=== PATIENT | female | born 1970 | race Caucasian/White ===

== ENCOUNTER 2020-10-24 05:05 | Emergency (ER) | payer MEDICAID ==
[~2020-10-24] VITALS: Ht 162.6 cm; Wt 95.3 kg
[~2020-10-24 05:05] MED LIST: LISINOPRIL-HCT1 EAC2 PO; NORCO; NORCO 10/3251 EA ORAL; NORCO 5-325 TA1 EACH ORAL; PERCOCET 5-3251 EACH ORAL
[2020-10-24] MEDS ORDERED: LYRICA75 M1 ORAL (05:21)
[2020-10-24] MEDS ORDERED: HYDROMORPHONE ER8 MG ORAL (05:21)
[2020-10-24] MEDS ORDERED: LABETALOL HCL100 MG ORAL (05:21)
[2020-10-24] MEDS ORDERED: AMLODIPINE BESY10 MG ORAL (05:21)
[2020-10-24] MEDS ORDERED: LOSARTAN POTASS25 MG ORAL (05:21)
[2020-10-24] MEDS ORDERED: ATORVASTATIN CA40 MG ORAL (05:21)
[2020-10-24] MEDS ORDERED: PROTONIX40 MG ORAL (05:21)
[2020-10-24] MEDS ORDERED: HYDROCHLOROTH12.5 MG ORAL (05:21)
[2020-10-24] MEDS ORDERED: HUMALOG100 UNIT/4 SUBQ (05:21)
[2020-10-24 05:30] VITALS: BP 173/105
[2020-10-24] MEDS ORDERED: LEVOFLOXACIN750 MG ORAL (05:42)
[2020-10-24] MEDS ORDERED: DIFICID200 MG PO (05:42)
--- NOTE | 2020-10-24 05:43 | Emergency Room Report ---
History of Present Illness General Chief Complaint: Diarrhea Source: Patient, Medical Record Present Illness HPI This is a 50-year-old female who has a history of recurrent C. difficile. She just finished antibiotics for Levaquin and Dificid around . She been admitted for this before. She presents with chief complaint of abdominal pain and diarrhea. She was doing well until today. Now started having diarrhea again. Has pain to the left lower quadrant area. Cramping in nature. No fever chills but no nausea no vomiting. Diarrhea is loose and greenish in nature. Similar symptom in the past. She has not taken her blood pressure medication th is morning. Allergies: Coded Allergies: ACETAMINOPHEN (Verified Allergy, 07/20/13) DIHYDROERGOTAMINE (Verified Allergy, 07/20/13) KETOROLAC TROMETHAMINE (Verified Allergy, 07/20/13) METOCLOPRAMIDE HCL (Verified Allergy, 07/20/13) MORPHINE (Verified Allergy, 07/20/13) NAPROXEN SODIUM (Verified Allergy, 07/20/13) PROPOXYPHENE NAPSYLATE (Verified Allergy, 07/20/13) Uncoded Allergies: IV CONTRAST (Allergy, Unknown, 07/20/13) COVID-19 Screening Contact w/high risk pt: No Experienced COVID-19 symptoms?: No COVID-19 Testing performed CHECKMAN: Yes - 10/20/20 COVID-19 Screening: Negative COVID-19 COVID-19 Testing Source: roderick sofia Patient History Past Medical History: see triage record, old chart reviewed Past Surgical History: other Pertinent Family History: none Social History: Denies: smoking Last Menstrual Period: n/a Now: No Immunizations: other Reviewed Nursing Documentation: PMH: Agreed; PSxH: Agreed Nursing Documentation-PMH Past Medical History: No History, Except For Hx Hypertension: Yes Hx Asthma: Yes - copd Hx Diabetes: Yes - type 2 Hx Neurological Problems: Yes - MIGRANES Review of Systems Eye: Denies: eye pain, blurred vision ENT: Denies: ear pain, nose congestion, throat swelling Respiratory: Denies: cough, shortness of breath Cardiovascular: Denies: chest pain, palpitations Gastrointestinal: Reports: abdominal pain, diarrhea; Denies: nausea, vomiting Musculoskeletal: Denies: back pain, joint pain Skin: Denies: rash Neurological: Denies: headache, numbness Endocrine: Denies: increased thirst, increased urine Hematologic/Lymphatic: Denies: easy bruising All Other Systems: negative except mentioned in HPI Physical Exam Vital Signs Date Time Temp Pulse Resp B/P (MAP) Pulse Ox O2 Delivery O2 Flow Rate FiO2 10/24/20 05:15 97.2 86 15 173/105 (127) 97 Room Air Vitals with high blood pressure Sp02 EP Interpretation: reviewed, normal General Appearance: well appearing, no apparent distress, alert Head: normocephalic, atraumatic Eyes: bilateral eye PERRL, bilateral eye EOMI ENT: hearing grossly normal, normal pharynx Neck: full range of motion, supple, no meningismus Respiratory: chest non-tender, lungs clear, normal breath sounds Cardiovascular #1: regular rate, rhythm, no murmur Gastrointestinal: normal bowel sounds, no mass, no organomegaly, no bruit, non- distended, tenderness - Left lower quadrant Musculoskeletal: back normal, normal range of motion, gait/station normal Psychiatric: mood/affect normal Medical Decision Making Diagnostic Impression: Primary Impression: Diarrhea Qualified Codes: R19.7 - Diarrhea, unspecified Additional Impression: Hypertension Qualified Codes: I10 - Essential (primary) hypertension ER Course Presents with recurrent diarrhea. Presumed to be C. difficile. Her to antibiotics for what grew out in the culture. She tried vancomycin and Flagyl and it was not helpful. She was told that her next that may be a fecal transplant. She is extremely hard stick with multiple PICC lines and central li mercedes in the past. Since there is no fever and this pain and diarrhea consistent with her previous C. difficile, will treat with oral medication. She does not want IV for now. Last Vital Signs Date Time Temp Pulse Resp B/P (MAP) Pulse Ox O2 Delivery O2 Flow Rate FiO2 10/24/20 05:15 97.2 86 15 173/105 (127) 97 Room Air Status: improved Disposition: HOME, SELF-CARE Condition: Stable Scripts Fidaxomicin (DIFICID) 200 Mg Tablet 200 MG PO BID, #20 TAB Prov: John Irving MD 10/24/20 Levofloxacin* (LEVOFLOXACIN*) 750 Mg Tablet 750 MG ORAL DAILY, #10 TAB Prov: John Irving MD 10/24/20 Referrals: NON PHYSICIAN (PCP) Additional Instructions: Take your blood pressure medication when you get home. Follow-up with your doctor in 2 to 3 days. Return if symptoms worsen. John Irving MD Oct 24, 2020 05:43
[2020-10-24] MEDS ORDERED: Levofloxacin 750mg tab ORAL ONE (05:45)
[2020-10-24] MEDS ORDERED: HYDROmorphone 4mg tab ORAL ONE (05:45)
[2020-10-24 05:50] VITALS: BP 173/105
== END 2020-10-24 05:50 | disposition home or self-care (01) ==
LOC: EMR 05:28
DX: R19.7 Diarrhea, unspecified (principal); I10 Essential (primary) hypertension; E11.9 Type 2 diabetes mellitus without complications; Z88.6 Allergy status to analgesic agent; Z88.5 Allergy status to narcotic agent; Z88.8 Allergy status to other drugs, medicaments and biological substances; Z79.4 Long term (current) use of insulin; Z79.899 Other long term (current) drug therapy
CPT/HCPCS: 99282

== ENCOUNTER 2020-11-23 13:05 | Emergency (ER) | payer MEDICAID ==
[~2020-11-23] VITALS: Ht 162.6 cm; Wt 93.0 kg
[~2020-11-23 13:05] MED LIST changes: +AMLODIPINE BESY10 MG ORAL; +ATORVASTATIN CA40 MG ORAL; +DIFICID200 MG PO; +HUMALOG100 UNIT/4 SUBQ; +HYDROCHLOROTH12.5 MG ORAL; +HYDROMORPHONE ER8 MG ORAL; +LABETALOL HCL100 MG ORAL; +LEVOFLOXACIN750 MG ORAL; +LOSARTAN POTASS25 MG ORAL; +LYRICA75 M1 ORAL; +PROTONIX40 MG ORAL
[2020-11-23 13:18] VITALS: BP 151/98
--- NOTE | 2020-11-23 13:37 | NUR ---
ED Nurse Note: pt. aaox4 and ambulatory.pt. walked in to er from home. per pt. she tested negative on 11/20/20 but is here for cough and nosebleed x 3 days. no active bleeding reported at this time
--- NOTE | 2020-11-23 13:37 | NUR ---
ED Nurse Note: r and d lab technician at the bed side
--- NOTE | 2020-11-23 14:02 | Emergency Room Report ---
History of Present Illness General Chief Complaint: Flu Like Symptoms Source: Patient Present Illness HPI 50-year-old female with history of CHF, chronic pain currently taking Flagyl as well as hydromorphone here complaining of few days of congestion and cough. Patient reports that she had a Covid test done 2 days ago and tested negative. Chest x-ray appears to be within normal limits. Denies any shortness of breath. Vital signs are within normal limits. Has not taken medication for symptom relief. Upon my entrance to the room patient asked if I could refill her hydromorphone. When I explained to patient that patient needs to asked pain management for that as she has chronic pain and we are unable to refill medication for a long time for chronic pain specialist for hydromorphone and emergency room setting patient agreed to be treated with Phenergan, azithromycin, albuterol for her symptoms. However patient eloped before being discharged. 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 COVID-19 Screening: Negative COVID-19 COVID-19 Testing Source: nasopharyngeal (11/20/20) Patient History Past Medical History: see triage record Past Surgical History: none Pertinent Family History: none Now: No Immunizations: UTD Reviewed Nursing Documentation: PMH: Agreed; PSxH: Agreed Nursing Documentation-PMH Hx Hypertension: Yes Hx Asthma: Yes - copd Hx Diabetes: Yes - type 2 Hx Neurological Problems: Yes - MIGRANES Review of Systems All Other Systems: negative except mentioned in HPI Physical Exam Vital Signs Date Time Temp Pulse Resp B/P (MAP) Pulse Ox O2 Delivery O2 Flow Rate FiO2 11/23/20 13:18 98.2 100 22 151/98 97 Room Air Sp02 EP Interpretation: reviewed, normal General Appearance: no apparent distress, alert, GCS 15, non-toxic Head: normocephalic, atraumatic Eyes: bilateral eye normal inspection, bilateral eye PERRL ENT: hearing grossly normal, no angioedema, normal voice Neck: full range of motion, supple/symm/no masses Respiratory: no respiratory distress, no retraction, no accessory muscle use Cardiovascular #1: regular rate, rhythm Gastrointestinal: non-distended Musculoskeletal: back normal, gait/station normal Neurologic: alert, motor strength/tone normal, oriented x3, sensory intact, r esponsive, speech normal Psychiatric: judgement/insight normal, memory normal, mood/affect normal, no suicidal/homicidal ideation Skin: no rash Lymphatic: normal inspection Medical Decision Making PA Attestation All my diagnosis and treatment plans were reviewed ad discussed with my supervising physician Dr. Elaine Diagnostic Impression: Primary Impression: URI (upper respiratory infection) Additional Impression: Eloped from emergency department ER Course 50-year-old female with history of CHF, chronic pain currently taking Flagyl as well as hydromorphone here complaining of few days of congestion and cough. Patient reports that she had a Covid test done 2 days ago and tested negative. Chest x-ray appears to be within normal limits. Denies any shortness of breath. Vital signs are within normal limits. Has not taken medication for symptom relief. Upon my entrance to the room patient asked if I could refill her hydromorphone. When I explained to patient that patient needs to asked pain management for that as she has chronic pain and we are unable to refill medic ation for a long time for chronic pain specialist for hydromorphone and emergency room setting patient agreed to be treated with Phenergan, azithromycin, albuterol for her symptoms. However patient eloped before being discharged. Ddx considered but are not limited to: strep pharyngitis, URI, tonsillitis, peritonsillar abscess, influneza Vital signs: are WNL, pt. is afebrile H&PE are most consistent with: URI, patient eloped, drug-seeking behavior ORDERS: Azithromycin, Phenergan, albuterol ED INTERVENTIONS: None required at this time. Patient eloped Chest X-Ray Diagnostic Results Chest X-Ray Diagnostic Results : Chest X-Ray Ordered: Yes # of Views/Limited/Complete: 1 View Indication: Other - cough EP Interpretation: Yes ELENI Xray: Interpretation reviewed, by supervising MD, and agrees with findings. Interpretation: no consolidation, no effusion, no pneumothorax Impression: No acute disease Electronically Signed by: Salma Gastelum PA-C Last Vital Signs Date Time Temp Pulse Resp B/P (MAP) Pulse Ox O2 Delivery O2 Flow Rate FiO2 11/23/20 13:18 98.2 100 22 151/98 (115) 97 Room Air Disposition: HOME, SELF-CARE Condition: Stable Scripts Albuterol Sulfate (VENTOLIN HFA) 18 Gm Hfa.aer.ad 2 PUFFS INH EVERY 6 HOURS, #18 GM 0 Refills Prov: Salma Odom 11/23/20 Promethazine Hcl (PROMETHAZINE HCL*) 6.25 Mg/5 Ml Syrup 5 ML ORAL Q8H, #120 ML 0 Refills Prov: Salma Odom 11/23/20 Azithromycin* (ZITHROMAX*) 250 Mg Tablet 250 MG ORAL DAILY, #6 TAB 0 Refills Take two tables once daily for 1 day, then one tablet once daily for 4 days. Prov: Salma Odom 11/23/20 Referrals: NON PHYSICIAN (PCP) Patient Instructions: Upper Respiratory Infection, Adult Additional Instructions: Take medication as directed, follow primary care provider, if worsening symptoms return to the emergency room Salma Odom Nov 23, 2020 14:02
[2020-11-23] MEDS ORDERED: PROMETHAZI6.25 MG/1 ORAL (14:03)
[2020-11-23] MEDS ORDERED: VENTOLIN HFA18 GM INH (14:03)
[2020-11-23] MEDS ORDERED: ZITHROMAX250 MG ORAL (14:03)
[2020-11-23 14:10] VITALS: BP 149/78
--- NOTE | 2020-11-23 14:10 | NUR ---
ED Nurse Note: Pt cleared by ERPA for discharge. DC instructions/prescription was given and explained to pt and verbalized understanding of teachings. All medical deviecs such as ID band removed. Pt is AAO x4, ambulatory and left with all personal belongings.
--- NOTE | 2020-11-23 14:17 | Diagnostic Imaging Report ---
Indication: Shortness of breath Technique: One view of the chest Comparison: none Findings: Lungs and pleural spaces are clear. The heart size is normal. There is mild thoracic scoliosis. Impression: No acute process
== END 2020-11-23 14:10 | disposition home or self-care (01) ==
LOC: EMR 13:39
DX: J06.9 Acute upper respiratory infection, unspecified (principal); I11.0 Hypertensive heart disease with heart failure; I50.9 Heart failure, unspecified; J44.9 Chronic obstructive pulmonary disease, unspecified; E11.9 Type 2 diabetes mellitus without complications; G89.29 Other chronic pain; Z88.6 Allergy status to analgesic agent; Z88.8 Allergy status to other drugs, medicaments and biological substances
CPT/HCPCS: 71045; Z7502; 99283

== ENCOUNTER 2020-12-18 22:49 | Emergency (ER) | payer MEDICAID ==
[~2020-12-18] VITALS: Ht 162.6 cm; Wt 93.0 kg
[~2020-12-18 22:49] MED LIST changes: +PROMETHAZI6.25 MG/1 ORAL; +VENTOLIN HFA18 GM INH; +ZITHROMAX250 MG ORAL
--- NOTE | 2020-12-18 23:05 | NUR ---
ED Nurse Note: pt comes into ED c/o left lower abdominal pain that radiates into her groin x2 days. pt ambulates independently. c/o of 05/29 pain. a&Ox3, resting comfrotably on stretcher, vs wnl. will continue to monitor. urine sent to lab.
[2020-12-18] MEDS ORDERED: HYDROmorphone 4mg tab ORAL ONE (23:30)
[2020-12-18] MEDS ORDERED: HYDROmorphone 1mg/ml Carpuject IM ONE (23:30)
--- NOTE | 2020-12-18 23:34 | Emergency Room Report ---
History of Present Illness General Chief Complaint: Pelvic Pain Source: Patient Present Illness HPI This is a 50-year-old female with recurrent C. difficile infection. She also had a recent bladder surgery in June. She has been through several rounds of Flagyl, vancomycin and a couple of rounds of Dificid. Because of her diarrhea, she felt some pelvic pain and pulling sensation. She said that when she s trained she felt a bulging sensation. Not as bad as before. Denies any fever chills but no nausea vomiting. Diarrhea is loose and mucousy. Nothing made it better. Nothing made it worse. She is awaiting a fecal transplant at [facility]. 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 COVID-19 Screening: Positive COVID-19 COVID-19 Testing Source: Manish Patient History Past Medical History: see triage record, old chart reviewed Past Surgical History: other Pertinent Family History: none Social History: Denies: smoking Now: No Immunizations: other Reviewed Nursing Documentation: PMH: Agreed; PSxH: Agreed Nursing Documentation-PMH Hx Hypertension: Yes Hx Asthma: Yes - copd Hx Diabetes: Yes - type 2 Hx Neurological Problems: Yes - MIGRANES Review of Systems Eye: Denies: eye pain, blurred vision ENT: Denies: ear pain, nose congestion, throat swelling Respiratory: Denies: cough, shortness of breath Cardiovascular: Denies: chest pain, palpitations Gastrointestinal: Denies: abdominal pain, diarrhea, nausea, vomiting Genitourinary: Reports: pain Musculoskeletal: Denies: back pain, joint pain Skin: Denies: rash Neurological: Denies: headache, numbness Endocrine: Denies: increased thirst, increased urine Hematologic/Lymphatic: Denies: easy bruising All Other Systems: negative except mentioned in HPI Physical Exam Vital Signs Date Time Temp Pulse Resp B/P (MAP) Pulse Ox O2 Delivery O2 Flow Rate FiO2 12/18/20 22:53 99.1 101 20 154/104 (121) 96 Room Air Vitals with high blood pressure Sp02 EP Interpretation: reviewed, normal General Appearance: well appearing, no apparent distress, alert Head: normocephalic, atraumatic Eyes: bilateral eye PERRL, bilateral eye EOMI ENT: hearing grossly normal, normal pharynx Neck: full range of motion, supple, no meningismus Respiratory: chest non-tender, lungs clear, normal breath sounds Cardiovascular #1: regular rate, rhythm, no murmur Gastrointestinal: normal bowel sounds, non tender, no mass, no organomegaly, no bruit, non-distended Genitourinary: other - Pelvic exam 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 There is no evidence of bladder prolapse on exam. No cervical motion tenderness. Musculoskeletal: back normal, normal range of motion, gait/station normal Psychiatric: mood/affect normal Medical Decision Making Diagnostic Impression: Primary Impression: Pelvic pain ER Course Patient presents with pelvic pain. No evidence of prolapse or UTI. Will discharge home. Last Vital Signs Date Time Temp Pulse Resp B/P (MAP) Pulse Ox O2 Delivery O2 Flow Rate FiO2 12/18/20 22:53 99.1 101 20 154/104 (121) 96 Room Air Status: improved Disposition: HOME, SELF-CARE Condition: Stable Referrals: NON PHYSICIAN (PCP) Patient Instructions: Pelvic Pain, Female Additional Instructions: Follow-up with your doctor in 7 days. Return if symptoms worsen. John Irving MD Dec 18, 2020 23:34
[2020-12-18 23:43] VITALS: BP 156/108
[2020-12-18 23:44] LABS: APPEARANCE,URINE SLIGHTLY CLOUDY; BILIRUBIN, URINE NEGATIVE (NEGATIVE); COLOR,URINE PALE YELLOW; GLUCOSE, URINE (UA) 3+ (NEGATIVE); KETONES,URINE NEGATIVE (NEGATIVE); LEUKOCYTE ESTERASE ,URINE NEGATIVE (NEGATIVE); NITRITE,URINE NEGATIVE (NEGATIVE); PH,URINE 5 (4.5-8.0); PROTEIN,URINE NEGATIVE (NEGATIVE); UROBILINOGEN,URINE NORMAL MG/DL (0.0-1.0)
[2020-12-19 00:02] VITALS: BP 154/99
--- NOTE | 2020-12-19 00:02 | NUR ---
ER DISCHARGE NOTE: Patient is cleared to be discharged per ERMD, pt is aox4, on room air, with stable vital signs. pt was given dc and instructions on a f/u appt, pt was able to verbalize understanding, pt id band removed without complications. pt is able to ambulate with steady gait. pt took all belongings.
== END 2020-12-19 | disposition home or self-care (01) ==
LOC: EMR 23:12
DX: R10.2 Pelvic and perineal pain (principal); I10 Essential (primary) hypertension; J44.9 Chronic obstructive pulmonary disease, unspecified; J45.909 Unspecified asthma, uncomplicated; E11.9 Type 2 diabetes mellitus without complications; G43.909 Migraine, unspecified, not intractable, without status migrainosus; Z86.16 Personal history of COVID-19; Z88.6 Allergy status to analgesic agent; Z88.5 Allergy status to narcotic agent; Z88.8 Allergy status to other drugs, medicaments and biological substances; Z98.890 Other specified postprocedural states
CPT/HCPCS: 81003; 96372; Z7502; 99283

== ENCOUNTER 2021-01-02 09:00 | Emergency (ER) | payer MEDICAID ==
[~2021-01-02] VITALS: Ht 162.6 cm; Wt 90.7 kg
[2021-01-02 09:04] VITALS: BP 169/94
--- NOTE | 2021-01-02 09:11 | NUR ---
ED Nurse Note: pt stated she had surgery back in 2017 on her right ankle with screws. the screws are "collapsing" or "something" and was supposed to have had surgery back in Aug. she wasn't able to then bc she tested positive for Cdiff. pt stated that the past 3 days her ankle has been swelling.
--- NOTE | 2021-01-02 09:21 | NUR ---
ED Nurse Note: pt requested oral diluadid. doesn't like needles. pt came out of room wanting to know if the dr is going to go get her something. informed her that the dr will put orders in and this RN will go and get the med he orders. pt stated okay.
--- NOTE | 2021-01-02 09:29 | Emergency Room Report ---
History of Present Illness General Chief Complaint: Lower Extremity Injury Source: Patient Present Illness HPI 50-year-old female presents for increased right-sided ankle pain. Prior history of ankle surgery in the past after remote trauma. States that she had previously been seen by pain management as well as orthopedic surgery. Patient had been previously taking oral Dilaudid. Had been recently prescribed Voltaren gel as well as an oral steroid. Patient had been reportedly seen by orthopedics and is currently scheduled for surgery. Reports having previous increased swelling which had been improving. Also states that she had some skin discoloration which had been improving as well. Denies any fever. 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 Patient History Past Medical History: see triage record Now: No Reviewed Nursing Documentation: PMH: Agreed; PSxH: Agreed Nursing Documentation-PMH Past Medical History: No History, Except For Hx Hypertension: Yes Hx Asthma: Yes - copd Hx Diabetes: Yes - type 2 Hx Neurological Problems: Yes - MIGRANES Review of Systems All Other Systems: negative except mentioned in HPI Physical Exam Vital Signs Date Time Temp Pulse Resp B/P (MAP) Pulse Ox O2 Delivery O2 Flow Rate FiO2 01/02/21 09:04 98.1 98 16 169/94 (119) 98 Room Air General Appearance: well appearing, no apparent distress, alert, GCS 15 Head: normocephalic, atraumatic ENT: hearing grossly normal, normal voice Neck: full range of motion, supple Respiratory: no respiratory distress, speaking full sentences Cardiovascular #1: normal inspection, regular rate, rhythm Gastrointestinal: normal inspection Musculoskeletal: normal inspection, decreased range of mation, other - No skin discoloration or bruising, brisk pulses Neurologic: alert, motor strength/tone normal, research center partner III-XII nml as tested, oriented x3, normal gait Psychiatric: normal inspection, mood/affect normal Skin: no rash Medical Decision Making Diagnostic Impression: Primary Impression: Opiate dependence Additional Impression: Ankle pain, right ER Course Patient presents for ankle pain. Differential diagnosis include was not limited to loosening of hardware, chronic pain exacerbation, opiate withdrawal, among others. X imaging was ordered to patient's previous surgery and recent complaint of pain. Does not appear to have any evidence of acute bony trauma. Patient was ambulatory without assistance. Foot does not appear to require any emergent treatment at this time. Patient's pain appears to be chronic in nature and patient had previous prescription for hydromorphone. Patient was given oral oral medication in the emergency department.No calf swelling to suggest DVT. Homans' sign negative. She appears to have multiple medication allergies which include multiple opiates as well as NSAIDs. Patient states that she is followed by pain management and was advised to follow-up with her pain doctors for refills of her medication as indicated. X-ray imaging showed no acute fracture. Is able to ambulate without gait abnormalities.Postsurgical changes were noted on x-ray. This medical record is generated with [employer] die cast supervisor software. There may be some die cast supervisor discrepancies related to use of this software Last Vital Signs Date Time Temp Pulse Resp B/P (MAP) Pulse Ox O2 Delivery O2 Flow Rate FiO2 01/02/21 09:04 98.1 98 16 169/94 (119) 98 Room Air Status: improved Disposition: HOME, SELF-CARE Condition: Stable Referrals: NON PHYSICIAN (PCP) Frederick Mack MD Jan 02, 2021 09:29
[2021-01-02] MEDS ORDERED: HYDROmorphone 4mg tab ORAL ONE (09:30)
--- NOTE | 2021-01-02 09:47 | Diagnostic Imaging Report ---
EXAM: XR Right Ankle Complete, 3 or More Views CLINICAL HISTORY: PAIN TECHNIQUE: Frontal, lateral and oblique views of the right ankle. COMPARISON: No relevant prior studies available. FINDINGS: Bones/joints: See below. Soft tissues: Unremarkable. Tubes, lines and devices: There is a partially threaded cannulated screw in the talus. No acute fracture or malalignment identified. There is mild osteoarthritis of the tibiotalar joint, subtalar joint and talonavicular joint. IMPRESSION: Mild primary osteoarthritis as described.
--- NOTE | 2021-01-02 10:10 | NUR ---
ER DISCHARGE NOTE: Patient is cleared to be discharged per ERMD, pt is aox4, on room air, with stable vital signs. pt was given dc instructions, pt was able to verbalize understanding. pt ambulated without difficulty with steady gait. pt took all belongings.
== END 2021-01-02 10:12 | disposition home or self-care (01) ==
LOC: EMR 09:19
DX: M25.571 Pain in right ankle and joints of right foot (principal); F11.20 Opioid dependence, uncomplicated; I10 Essential (primary) hypertension; J44.9 Chronic obstructive pulmonary disease, unspecified; E11.9 Type 2 diabetes mellitus without complications; G43.909 Migraine, unspecified, not intractable, without status migrainosus; Z88.6 Allergy status to analgesic agent; Z88.5 Allergy status to narcotic agent; Z88.8 Allergy status to other drugs, medicaments and biological substances; Z91.041 Radiographic dye allergy status; Z79.4 Long term (current) use of insulin; Z79.899 Other long term (current) drug therapy
CPT/HCPCS: 73610; Z7502; 99283